=== PATIENT | female | born 1945 | race American Indian/Alaskan Native ===

== ENCOUNTER 2016-07-08 11:35 | Outpatient (CLI) | payer MEDICARE ==
--- NOTE | 2016-07-09 12:16 | PET Report ---
PET SB TO MT subsequent: HISTORY: Restaging of lung cancer, restaging of breast cancer. TECHNIQUE: 14.2 millicuries F-18 FDG was administered intravenously. Noncontrast CT images and PET images were obtained from the skull base to the proximal thighs. Fused images were reviewed on a workstation. The patient's blood glucose level measured 93. COMPARISON: 05/07/14. FINDINGS: BRAIN: physiologic FDG uptake in the imaged brain. NECK: physiologic FDG uptake. CHEST: Physiologic FDG uptake. Stable bilateral mastectomy changes. MEDIASTINUM: physiologic FDG uptake. LUNGS: physiologic FDG uptake. The previously described 2.4 x 1.3 cm lingular mass like lesion has been resected or has resolved. No new lung mass is appreciated. PLEURA/PERICARDIUM: physiologic FDG uptake. THORACIC LYMPH NODES: physiologic FDG uptake. HEPATOBILIARY: physiologic FDG uptake. Mean liver SUV measures . PANCREAS: physiologic FDG uptake. SPLEEN: physiologic FDG uptake. ADRENAL GLANDS: physiologic FDG uptake. KIDNEYS/RENAL COLLECTING SYSTEMS: physiologic FDG uptake. BOWEL/MESENTERY: physiologic FDG uptake. PELVIC VISCERA: physiologic FDG uptake. ABDOMINAL/PELVIC LYMPH NODES: physiologic FDG uptake. MUSCULOSKELETAL: physiologic FDG uptake. IMPRESSION: Negative PET/CT. No evidence for disease recurrence or metastasis. The left lung lesion has been resected or has resolved since 05/07/14. No new areas of disease are appreciated.
== END 2016-07-08 11:36 | disposition home or self-care (01) ==
LOC: PET 11:35
PROVIDERS: ATTEND Internal Medicine Hematology & Oncology
DX: C34.12 Malignant neoplasm of upper lobe, left bronchus or lung (principal); C50.512 Malignant neoplasm of lower-outer quadrant of left female breast; Z90.13 Acquired absence of bilateral breasts and nipples
CPT/HCPCS: 78815; 82962; A9552

== ENCOUNTER 2018-03-28 10:35 | Outpatient (CLI) | payer MEDICARE ==
--- NOTE | 2018-03-28 16:22 | Mammography Report ---
BONE DEXA:03/28/18 10:35:00 CLINICAL: Postmenopausal. COMPARISON: History of left breast cancer and on aromatase inhibitor. TECHNIQUE: Two site bone DEXA performed on an Hologic scanner. FINDINGS: The average BMD of the lumbar spine L1-L4 is 1.009g/cm squared with a T-score of -0.3 and a Z-score of +2.0. This compares to 0.997g/cm squared on the last exam and represents a +1.2% change from the previous baseline. The average BMD of the left hip is 1.062g/cm squared with a T-score of +1.0 and a Z-score of +2.8. This compares to 1.002g/cm squared on the last exam and represents a +5.9% change from the previous baseline. IMPRESSION: 1. WHO classification: Normal with average fracture risk based on both spine and left hip measurements. 2. Both spine and left hip BMD have increased compared to the previous exam. RECOMMENDATION: Clinical correlation and routine screening. DEFINITIONS: BMD = Bone Mineral Density T-score = BMD related to mean peak bone mass of young adult (mean expressed in Standard Deviation) Z-score = Age matched BMD expressed in SD World Health Organization (WHO) Diagnostic Criteria Normal T-score > -1 SD Osteopenia T-score between -1 and -2.4 SD Osteoporosis T-score -2.5 SD or below NOTE: BMD is not the only risk factor for fracture; also consider factors such as the patient's age, risk of falling, previous osteoporotic fracture, family history of osteoporotic fractures, current smoker, and low body weight. Z-scores are not calculated if >80 years of age.
== END 2018-03-28 10:36 | disposition home or self-care (01) ==
LOC: SPVWC 10:35
PROVIDERS: ATTEND Internal Medicine Hematology & Oncology
DX: C50.512 Malignant neoplasm of lower-outer quadrant of left female breast (principal); C34.12 Malignant neoplasm of upper lobe, left bronchus or lung; Z78.0 Asymptomatic menopausal state
CPT/HCPCS: 77080

== ENCOUNTER 2018-06-29 10:29 | Outpatient (CLI) | payer MEDICARE ==
--- NOTE | 2018-06-29 16:36 | Cat Scan Report ---
FINAL REPORT EXAM: CT ABDOMEN PELVIS W CON HISTORY: LUNG AND BREAST CANCER TECHNIQUE: CT examination of the ABDOMEN after IV contrast CT examination of the PELVIS after IV contrast PRIORS: Chest CT 06/29/2018 FINDINGS: Chest CT findings can be found in same day chest CT report. Degenerative change in the regional skeleton. No evidence of acute fracture. The grade 1 anterolisthe sis at L4-5 without spondylolysis. Normal-appearing gallbladder, adrenals, and spleen. No focal liver lesion. Hepatomegaly with sagittal dimension 20.5 cm. Nonspecific slight diffuse distention of the pancreatic duct. This may be secondary to prior pancreat itis. No pancreatic parenchymal calcification. No evidence of acute inflammatory change or CT evidenc e of mass in the pancreas. Normal caliber abdominal aorta with extensive atherosclerotic calcified and noncalcified plaque. Calc ified plaque extends into the iliac and femoral arteries and involves the renal arteries. Normal jose ariadne IVC. 1 mm and 3 mm nonobstructing right renal calculi. Nonspecific, smoothly marginated, low density, simp le appearing right renal lesions are statistically most likely cysts. They are too small to character ize. No right hydronephrosis. No calculus or distention in the visible right ureteral segments. Left kidney asymmetrically smaller than the right. This may be from hypoplasia or atrophy. Nonspecifi c, smoothly marginated, low density, simple appearing left renal lesions are statistically most likel y cysts. No left hydronephrosis or calculus. No distention or calculus in the visible left ureteral s egments. Very small fat containing umbilical hernia. No inguinal hernia. No retroperitoneal adenopathy. No gail dence of mesenteric mass. Normal-appearing stomach and duodenum. No small bowel distention in the abd omen and pelvis. Nonspecific trace pelvic free fluid may be physiologic or reactive. Normal-appearing urinary bladder, uterus, adnexae, and rectum. Moderate descending and severe sigmoid diverticulosis. Moderate diverticulosis in transverse colon an d slight diverticulosis ascending colon. No CT evidence of diverticulitis. No gross ascites, free air, or colonic distention. Normal-appearing cecum and terminal ileum. Appendi x not visualized. No pericecal inflammation. IMPRESSION: Hepatomegaly without focal lesion Nonspecific diffuse distention of the pancreatic duct may be secondary to prior inflammation. No defi nite CT visualization of inflammatory change or mass Nonobstructing right renal calculi Asymmetrically smaller functioning left kidney may be from hypoplasia or atrophy Multifocal diverticulosis most severe in sigmoid colon region Nonspecific trace pelvic free fluid may be physiologic or reactive
--- NOTE | 2018-06-29 16:46 | Cat Scan Report ---
FINAL REPORT EXAM: CT CHEST W CON HISTORY: LUNG AND BREAST CANCER TECHNIQUE: CT examination of the chest after IV contrast PRIORS: AP CT 06/29/2018 FINDINGS: Abdomen and pelvic findings can be found in same day AP CT report. Slight cardiomegaly without pericardial effusion. Coronary artery calcification. Intact normal caliber thoracic aorta with extensive calcified and noncalcified atherosclerotic plaque . Normal-appearing esophagus. No evidence of hilar mass or mediastinal adenopathy. The visualized pul monary arteries are diffusely patent. Degenerative changes in the regional skeleton. No evidence of acute fracture. Sagittal views of the t horacic spine demonstrate multifocal nonspecific lucencies within multiple thoracic vertebral bodies. This may be related osteopenia. Differential includes skeletal metastasis. Findings suggest prior bilateral mastectomy. No evidence of pneumothorax or pleural effusion. Slight upper lobe pulmonary emphysema. Nonspecific spiculated nodule in left upper lobe measures 10 x 21 mm, series 3, image 36. A small spi cule extends from the lateral mass margin to the lateral pleural surface. This is suspicious for neop lasm. Correlate with site of lung cancer history. No evidence of right lung mass or nodule. Calcified granulomas left hilum. Linear scar versus atelectasis in left lower lobe. IMPRESSION: Nonspecific spiculated nodule in left upper lobe suspicious for neoplasm. Correlate with site of lung cancer history Multiple lucent lesions scattered throughout the thoracic spine vertebral bodies are nonspecific and may be related osteopenia. Differential includes skeletal metastasis in patient with history of lung and breast cancer Slight upper lobe pulmonary emphysema Slight cardiomegaly with coronary artery calcification
== END 2018-06-29 10:30 | disposition home or self-care (01) ==
LOC: CT 10:29
PROVIDERS: ATTEND Internal Medicine Hematology & Oncology
DX: J43.8 Other emphysema (principal); I51.7 Cardiomegaly; R16.0 Hepatomegaly, not elsewhere classified; K57.30 Diverticulosis of large intestine without perforation or abscess without bleeding; C34.12 Malignant neoplasm of upper lobe, left bronchus or lung; C50.512 Malignant neoplasm of lower-outer quadrant of left female breast
CPT/HCPCS: 36415; 71260; 74177; 82565; 84520; Q9967

== ENCOUNTER 2018-07-26 08:28 | Day surgery (SDC) | payer MEDICARE ==
[2018-07-26] MEDS ORDERED: NACL 0.9% 1000 ML 1,000 ML IV SCH (09:00)
[2018-07-26 09:57] LABS: Calcium 9.5 mg/dL (8.4-10.2)
[2018-07-26] MEDS ORDERED: VERSED ONE ×2 (10:12→10:13)
[2018-07-26] MEDS ORDERED: KETALAR ONE (10:13)
[2018-07-26] MEDS ORDERED: SUBLIMAZE ONE (10:13)
[2018-07-26] MEDS ORDERED: DIPRIVAN 10 MG/ML IV ONE (10:13)
[2018-07-26] MEDS ORDERED: HURRICAINE ONE 20% TOPICAL SPRAY MM (10:43)
[2018-07-26] MEDS ORDERED: PROVENTIL IH ONE (10:58)
[2018-07-26] MEDS ORDERED: HURRICAINE ONE 20% TOPICAL SPRAY MM NR (11:00)
--- NOTE | 2018-07-26 12:01 | Short Stay Summary ---
Short Stay Documentation Date of service: 07/26/18 - History H&P: obtained from office - Allergies and Medications Current Medications: Allergies No Known Allergies Allergy (Unverified 04/18/14 09:06) Home Medications Medication Instructions Recorded Confirmed Last Taken Type Apixaban [Eliquis] 5 mg PO BID 07/26/18 07/26/18 07/25/18 History 5mg Ergocalciferol (Vitamin D2) 50,000 units PO QWEEK 07/26/18 07/26/18 07/18/18 History [Drisdol] Furosemide [Lasix TAB] 40 mg PO DAILY 07/26/18 07/26/18 07/25/18 History 40mg ISOSORBIDE MONOnitrate [Imdur ER] 60 mg PO DAILY 07/26/18 07/26/18 07/25/18 History 60mg Letrozole (Nf) [Femara (Nf)] 2.5 mg PO BID 07/26/18 07/26/18 07/25/18 History 2.5mg Levothyroxine [Synthroid] 50 mcg PO DAILY 07/26/18 07/26/18 06/20/18 History 50mcg Losartan [Cozaar] 100 mg PO DAILY 07/26/18 07/26/18 07/25/18 History 100mg Omeprazole 20 mg PO DAILY 07/26/18 07/26/18 07/17/18 History 20mg Rosuvastatin (Nf) [Crestor] 20 mg PO DAILY 07/26/18 07/26/18 07/25/18 History 20mg Sitagliptin Phosphate [Januvia] 50 mg PO DAILY 07/26/18 07/26/18 07/24/18 History 50mg amLODIPine [Norvasc] 10 mg PO DAILY 07/26/18 07/26/18 07/25/18 History 10mg Active Medications Sodium Chloride (Nacl 0.9% 1000 Ml) 1,000 mls @ 42 mls/hr IV DIRECT TJ - Physical exam General appearance: no acute distress Integumentary: no rash HEENT: Atraumatic Lungs: Clear to auscultation Breasts: deferred Heart: Other Gastrointestinal: normal Female Genitourinary: deferred Rectal Exam: deferred Extremities: no ischemia Neurological: Normal gait - Brief post op/procedure progress note Date of procedure: 07/26/18 Pre-op diagnosis: Afib Post-op diagnosis: same Procedure: DEBORAH guided CV Anesthesia: MAC Findings: See report Surgeon: BAIRON FERRARA Estimated blood loss: none Pathology: none Condition: stable - Hospital course Hospital course: Uneventful - Disposition Condition at discharge: Good Disposition: DC-01 TO HOME OR SELFCARE Short Stay Discharge Plan Activity: advance as tolerated Weight Bearing Status: Weight Bear as Tolerated Diet: low fat, low cholesterol, low salt Follow up with: TOREY MOSLEY MD [Primary Care Provider] - 7 Days
[2018-07-26 13:41] VITALS: BP 155/70
--- NOTE | 2018-07-26 22:17 | Procedure Note ---
CARDIOVERSION REPORT ORDERING PHYSICIAN: Dr. Erika Yuan. INDICATION: Persistent atrial fibrillation. DESCRIPTION OF PROCEDURE: After obtaining written consent and after documenting the absence of left atrial appendage clot with transesophageal echocardiography, the patient was deeply sedated with propofol in the presence of anesthesia staff. A 200 joule synchronized shock was administered with successful conversion from atrial fibrillation into sinus rhythm. No complications occurred during the procedure. JOB# [id number] RAEANN/GUY
== END 2018-07-26 14:30 | disposition home or self-care (01) ==
LOC: CATHLABREC 08:28 → EDSTATUS 09:30 → CATHLABREC 14:30
PROVIDERS: ATTEND Internal Medicine
DX: I34.0 Nonrheumatic mitral (valve) insufficiency (principal); I48.91 Unspecified atrial fibrillation; I25.10 Atherosclerotic heart disease of native coronary artery without angina pectoris; I73.9 Peripheral vascular disease, unspecified; E78.00 Pure hypercholesterolemia, unspecified; I10 Essential (primary) hypertension; J44.9 Chronic obstructive pulmonary disease, unspecified; M19.90 Unspecified osteoarthritis, unspecified site; K21.9 Gastro-esophageal reflux disease without esophagitis; Z90.13 Acquired absence of bilateral breasts and nipples; Z80.8 Family history of malignant neoplasm of other organs or systems; Z98.890 Other specified postprocedural states; Z96.653 Presence of artificial knee joint, bilateral; Z79.899 Other long term (current) drug therapy; Z87.891 Personal history of nicotine dependence; Z98.49 Cataract extraction status, unspecified eye; Z82.49 Family history of ischemic heart disease and other diseases of the circulatory system; Z85.118 Personal history of other malignant neoplasm of bronchus and lung; Z85.3 Personal history of malignant neoplasm of breast
CPT/HCPCS: 36415; 80048; 93005; 93010; 93312; 93320; 93325; J2250; J2704; J3010; J7030